=== PATIENT | male | born 1990 | race Caucasian/White ===

== ENCOUNTER 2017-08-30 23:09 | Emergency (ER) | payer BC, OTHER ==
[~2017-08-30] VITALS: Ht 177.8 cm; Wt 95.3 kg
--- NOTE | 2017-08-31 00:13 | PHYS DOC ---
Past History Past Medical History: No Pertinent History Past Surgical History: No Surgical History Adult General Chief Complaint Chief Complaint: MECHANICAL FALL HPI HPI Patient is a 27 year old male who presents with injury to his head. At 1900 PM he was snowboarding at [facility] when he fell and hit the back of his head. He was helmeted. However he cracked his helmet. He was dazed initially denies any complete loss of consciousness. [place] very woozy and had colors flashing in his peripheral vision. He laid down for a while and was checked out by the local skid strapper and then decided to leave. He has a dull headache and his neck is sore. No nausea or vomiting. No numbness, tingling or weakness of extremities. No injury to chest, back or abdomen. He presents here due to persistent headache. Review of Systems Review of Systems Constitutional: Denies fever or chills Eyes: Denies change in visual acuity, redness, or eye pain but had flashing lights that resolved. HENT: Denies nasal congestion or sore throat Respiratory: Denies cough or shortness of breath Cardiovascular: No chest pain. GI: Denies abdominal pain, nausea, vomiting, bloody stools or diarrhea : Denies dysuria or hematuria Musculoskeletal: Denies back pain or joint pain; POS neck pain. Integument: Denies rash or skin lesions Neurologic: POS headache, Denies focal weakness or sensory changes All other systems were reviewed and found to be within normal limits, except as documented in this note. Physical Exam Physical Exam Constitutional: Well developed, well nourished, no acute distress, non-toxic appearance. HENT: Normocephalic, atraumatic, Tympanic membranes are clear bilaterally without hemotympanums, bilateral external ears normal, oropharynx moist, no oral exudates, nose normal. Eyes: PERRLA, EOMI, conjunctiva normal, no discharge. Neck: Normal range of motion, mild tenderness along posterior neck, no crepitance, no step-off, supple, no stridor. Cardiovascular:Heart rate regular rhythm, no murmur Lungs & Thorax: Bilateral breath sounds clear to auscultation, nontender to palpation Abdomen: Bowel sounds normal, soft, no tenderness, no masses, no pulsatile masses. No tenderness to palpation Skin: Warm, dry, no erythema, no rash. Back: No tenderness, no CVA tenderness. Extremities: No tenderness, no cyanosis, no clubbing, ROM intact, no edema. Neurologic: Alert and oriented X 3, normal motor function, normal sensory function, no focal deficits noted. Psychologic: Affect normal, judgement normal, mood normal. Current Patient Data Vital Signs P 75, sat 100%, BP 154/80; repeat BP 143/98 Radiology/Procedures Radiology/[place] [address] IMAGING REPORT Signed PATIENT: NATALI MCKEON ACCOUNT: [id number] : 1990 LOCATION: ER AGE: 27 SEX: M EXAM STATUS: REG ER ORD. PHYSICIAN: ARMAAN LOZA MD REASON: snowboarding; cracked helmet; headache andneck sore PROCEDURE: CT HEAD AND CERVICAL SPINE WO INDICATION: Head and neck pain after snowboarding accident today. No prior injury or surgery. No previous exams for comparison COMPARISON: None. TECHNIQUE: Axial CT images obtained through the head and cervical spine without intravenous contrast. Coronal and sagittal reformats processed of cervical spine. One or more of the following individualized dose reduction techniques were utilized for this examination: 1. Automated exposure control; 2. Adjustment of the mA and/or kV according to patient size; 3. Use of iterative reconstruction technique. FINDINGS: Head: No intracranial hemorrhage. No midline shift. Basal cisterns patents. Ventricles and sulci are within normal limits. No acute osseous abnormality. Partial opacification of partially seen paranasal sinuses. Subcutaneous lesion at right frontal region measuring up to about 12 mm. Could be a skin associated lesion. Cervical: No definite acute fracture. No significant malalignment. No evidence of perivertebral hematoma. IMPRESSION: No acute intracranial hemorrhage. No definite acute fracture or dislocation of the cervical spine. Partial opacification of partially seen paranasal sinuses. Could be from sinus congestion or sinusitis. Subcutaneous lesion right frontal region. Electronically signed by: Aly Chavez MD (08/31/2017 1:08 AM) [facility] DICTATED AND SIGNED BY: ALY CHAVEZ MD DATE: 08/31/17 0046 CC: ARMAAN LOZA MD; PCP,NO ~ Course & Med Decision Making Course & Med Decision Making A patient upon arrival. Due to significant impact (I did see his helmet), will CT. At 0120 AM: CT results back and are negative. Reviewed findings with patient. Rx: Naprosyn and norflex. I have spoken with the patient and/or caregivers. I have explained the patient' s condition, diagnosis and treatment plan based on the information available to me at this time. I have answered the patient's and/or caregiver's questions and addressed any concerns. The patient and/or caregivers have as good an understanding of the patient's diagnosis, condition and treatment plan as can be expected at this point. The patient's condition is stable and appropriate for discharge from the emergency department. The patient will pursue further outpatient evaluation with the primary care physician or other designated or consulting physician as outlined in the discharge instructions. The patient and/or caregivers are agreeable to this plan of care and follow-up instructions have been explained in detail. The patient and/or caregivers have received these instructions in written format and have expressed an understanding of the discharge instructions. The patient and/or caregivers are aware that any significant change in condition or worsening of symptoms should prompt an immediate return to this or the closest emergency department or a call to 911. Dragon Disclaimer Dragon Disclaimer This electronic medical record was generated, in whole or in part, using a voice recognition dictation system. Departure Departure: Impression: Primary Impression: Head injury Additional Impression: Cervical strain Disposition: 01 HOME, SELF-CARE Condition: STABLE Referrals: PCP,NO (PCP) Patient Instructions: Cervical Strain and Sprain with Rehab-[facility], Head Injury, Adult Additional Instructions: YOUR CT SCANS HERE WERE NEGATIVE. CONTINUE WITH TYLENOL OR MOTRIN FOR THE PAIN. YOU CAN TAKE THE MUSCLE RELAXER FOR THE NECK STRAIN Scripts Naproxen (NAPROSYN) 500 Mg Tablet 1 TAB PO BID, #30 TAB 1 Refill Prov: ARMAAN LOZA MD 08/31/17 Orphenadrine Citrate (ORPHENADRINE CITRATE) 100 Mg Tablet.er 1 TAB PO BID, #20 TAB 1 Refill Prov: ARMAAN LOZA MD 08/31/17 Problem Qualifiers Primary Impression: Head injury Encounter type: initial encounter Qualified Codes: S09.90XA - Unspecified injury of head, initial encounter Additional Impression: Cervical strain Encounter type: initial encounter Qualified Codes: S16.1XXA - Strain of muscle, fascia and tendon at neck level, initial encounter ARMAAN LOZA MD Aug 31, 2017 00:13
[2017-08-31 00:40] VITALS: BP 143/98
[2017-08-31] MEDS ORDERED: ORPH-16 PO (01:07)
[2017-08-31] MEDS ORDERED: NAPR-683 PO (01:07)
--- NOTE | 2017-08-31 01:12 | RAD ---
INDICATION: Head and neck pain after snowboarding accident today. No prior injury or surgery. No previous exams for comparison COMPARISON: None. TECHNIQUE: Axial CT images obtained through the head and cervical spine without intravenous contrast. Coronal and sagittal reformats processed of cervical spine. One or more of the following individualized dose reduction techniques were utilized for this examination: 1. Automated exposure control; 2. Adjustment of the mA and/or kV according to patient size; 3. Use of iterative reconstruction technique. FINDINGS: Head: No intracranial hemorrhage. No midline shift. Basal cisterns patents. Ventricles and sulci are within normal limits. No acute osseous abnormality. Partial opacification of partially seen paranasal sinuses. Subcutaneous lesion at right frontal region measuring up to about 12 mm. Could be a skin associated lesion. Cervical: No definite acute fracture. No significant malalignment. No evidence of perivertebral hematoma. IMPRESSION: No acute intracranial hemorrhage. No definite acute fracture or dislocation of the cervical spine. Partial opacification of partially seen paranasal sinuses. Could be from sinus congestion or sinusitis. Subcutaneous lesion right frontal region. Electronically signed by: Aly Chavez MD (08/31/2017 1:08 AM) [facility]
== END 2017-08-31 01:25 | disposition home or self-care (01) ==
LOC: ER 23:09
DX: S09.90XA Unspecified injury of head, initial encounter (principal); S16.1XXA Strain of muscle, fascia and tendon at neck level, initial encounter; V00.311A Fall from snowboard, initial encounter; Y93.23 Activity, snow (alpine) (downhill) skiing, snowboarding, sledding, tobogganing and snow tubing; Y99.8 Other external cause status; Y92.89 Other specified places as the place of occurrence of the external cause
CPT/HCPCS: 70450; 72125; 99284-25

== ENCOUNTER → 2018-12-16 | Outpatient (CLI) | payer OTHER ==
[~2018-12-16] MED LIST: NAPR-683 PO; ORPH-16 PO
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
== END | disposition home or self-care (01) ==
LOC: US 07:35
PROVIDERS: ATTEND Registered Nurse
DX: R19.00 Intra-abdominal and pelvic swelling, mass and lump, unspecified site (principal)
CPT/HCPCS: 76705